=== PATIENT | female | born 1970 | race Caucasian/White ===

== ENCOUNTER → 2016-08-29 | Outpatient (CLI) | payer OTHER ==
--- NOTE | ~2016-08-29 | NM69 ---
[facility] A Service of [facility] RADIOLOGY TEXT RESULTS PATIENT: SOFY SINGLETON LOCATION: [facility] : 68 UNIT #: [id number] AGE: [address]: Josefina, ER Doctor SEX: F ORDER DR: [id number] [facility] [address] [place], [place] [address] [id number] MR#: [id number] Acc #: [id number] NAME: SOFY SINGLETON : 1970 SEX: F STUDY DATE/TIME: 08/29/2016 UNIT: CRA ROOM: STUDY DESCRIPTION: NM Pulm Vent and Perf Attending Physician: Josefina Er Ordering Physician: Shivani Not Listed Primary Care Physician: Emili Primary Care Physician MEDICAL IMAGING REPORT This report is preliminary unless electronic signature is present EXAM Nuclear Medicine ventilation/perfusion lung scan, 08/29/2016, 1753 hours. HISTORY 46-year-old woman complaining of shortness of air and chest pain with cough, low grade fever, and elevated D-dimer. Symptoms began 1 week after returning from a trip to [place]. COMPARISON Chest film, 08/29/2016. TECHNIQUE Ventilation images were obtained in multiple projections following the inhalation of 32.2 mCi technetium-99m DTPA. Perfusion images were obtained in similar multiple projections following the IV administration of 5.08 mCi technetium-99m MAA. FINDINGS The ventilatory images demonstrate homogeneous distribution of tracer throughout both lungs. Perfusion images demonstrate homogeneous distribution throughout both lungs similar to that of the ventilation images. IMPRESSION Ventilation-perfusion lung scan demonstrates no mismatched defects. Study is in the very low probability category for pulmonary embolism. STAT * RESULT Dictated by... Vijaya Song M.D. [facility] A Service of [facility] RADIOLOGY TEXT RESULTS PATIENT: SOFY SINGLETON LOCATION: [facility] : 68 UNIT #: [id number] AGE: [address]: Josefina, ER Doctor SEX: F ORDER DR: THIS IS AN ELECTRONICALLY VERIFIED REPORT Vijaya Song M.D. at 08/29/2016 8:32 PM Dion TD: 08/29/2016 20:07 JOB #: [id number] MEDICAL IMAGING REPORT Page 1 of 1 COPY
== END | disposition home or self-care (01) ==
LOC: CRAD 16:28
DX: R06.02 Shortness of breath (principal); R76.0 Raised antibody titer; R07.9 Chest pain, unspecified; R05 Cough
CPT/HCPCS: 78582; A9540; A9567